=== PATIENT | female | born 1940 | race Caucasian/White ===

== ENCOUNTER → 2016-11-05 | Outpatient (CLI) | payer OTHER ==
[~2016-11-05] MED LIST: ACET-749 PO; ALLO100T PO; AMIT50TA3 PO; AMLH550 PO; ATEN-175 PO; CLX20 PO; CYAN100020 PO; DTR5 PO; ERGO500037 PO; FLNIN NAE; GUAISYP4 PO; IPRA1AER2 INH; LCTX PO; MAGN400T6 PO; ONDA4TAB46 PO; POTA10CA28 PO
--- NOTE | 2016-11-05 11:43 | DIAGNOSTIC IMAGING REPORT ---
KUB CLINICAL HISTORY: Nephrolithiasis. Cyst of kidney. COMPARISON STUDY: CT of the abdomen and pelvis January 13, 2016. FINDINGS: There is a large amount of stool within the colon and rectum. This makes evaluation for urinary calculi difficult. Pelvic calcifications were shown to represent phleboliths on prior CT. There is an equivocal 4 mm right renal calculus. No calculus was shown on CT of January 13, 2016 within the right kidney. IMPRESSION: No convincing urinary calculi identified although sensitivity is diminished by large amount of stool within the colon. Equivocal 4 mm right renal calculus. Electronically signed by: Iglesia Domingo M.D. 11/05/2016 11:41 AM Dictated Date/Time: 11/05/2016 11:39 AM
== END | disposition home or self-care (01) ==
LOC: C.RAD1850 10:49
PROVIDERS: ATTEND Urology
DX: N28.1 Cyst of kidney, acquired (principal); N20.0 Calculus of kidney; E55.9 Vitamin D deficiency, unspecified; I12.9 Hypertensive chronic kidney disease with stage 1 through stage 4 chronic kidney disease, or unspecified chronic kidney disease; N18.3 Chronic kidney disease, stage 3 (moderate); N25.81 Secondary hyperparathyroidism of renal origin; M10.9 Gout, unspecified; E53.8 Deficiency of other specified B group vitamins

== ENCOUNTER → 2016-12-03 | Outpatient (CLI) | payer OTHER | END | disposition home or self-care (01) | LOC: C.LABSPEC 16:56 | PROVIDERS: ATTEND Urology | DX: N39.0 Urinary tract infection, site not specified (principal) ==

== ENCOUNTER → 2017-01-26 | Outpatient (CLI) | payer OTHER ==
--- NOTE | 2017-01-26 16:24 | MAMMOGRAPHY REPORT ---
BILATERAL DIGITAL SCREENING MAMMOGRAM WITH CAD: 01/26/2017 CLINICAL HISTORY: Routine screening. Patient has no complaints. TECHNIQUE: Bilateral CC, MLO and repeat right CC views were obtained. Current study was also evalua charles with a Computer Aided Detection (CAD) system. COMPARISON: Comparison is made to exams dated: 01/23/2016 mammogram, 01/09/2015 mammogram, 01/06/2014 mammogram, 01/03/2013 mammogram, 12/29/2011 mammogram, and 12/19/2009 mammogram - [facility]. BREAST COMPOSITION: There are scattered areas of fibroglandular density in both breasts. FINDINGS: There are diffuse bilateral punctate microcalcifications. Mild vascular calcifications in the breasts. No suspicious mass, architectural distortion or cluster of suspicious microcalcificat ions is seen. IMPRESSION: ACR BI-RADS CATEGORY 1: NEGATIVE There is no mammographic evidence of malignancy. A 1 year screening mammogram is recommended. The p atient will receive written notification of the results. Approximately 10% of breast cancers are not detected with mammography. A negative mammographic repor t should not delay biopsy if a clinically suggestive mass is present. Amalia Zavala M.D. ay/:01/26/2017 15:19:59 Manager Purchasing: Brianne COWAN(R)(M), [facility] letter sent: Normal 1/2 BI-RADS Code: ACR BI-RADS Category 1: Negative
== END | disposition home or self-care (01) ==
LOC: C.MAMM 10:48
PROVIDERS: ATTEND Obstetrics & Gynecology
DX: Z12.31 Encounter for screening mammogram for malignant neoplasm of breast (principal)

== ENCOUNTER → 2017-04-20 | Outpatient (CLI) | payer OTHER ==
[2017-04-20 12:13] LABS: URINE APPEARANCE CLOUDY (CLEAR); URINE BILIRUBIN NEG (NEG); URINE COLOR YELLOW; URINE NITRITE POS (NEG); URINE PH 5.5 (4.5-7.5); UROBILINOGEN NEG (NEG); ZZUR CULT IF INDIC CLEAN CATCH YES
[2017-04-20 12:14] LABS: MANUAL MICROSCOPIC REQUIRED? NO; REVIEW REQ? NO
== END ==
LOC: C.LAB1850 10:18
PROVIDERS: ATTEND Internal Medicine
DX: N39.0 Urinary tract infection, site not specified (principal)

== ENCOUNTER → 2017-05-21 | Outpatient (CLI) | payer OTHER ==
[2017-05-21 12:14] LABS: HEMATOCRIT 42.8 % (37-47); MEAN CELL VOLUME 87.2 fL (80-100); MEAN CORPUSCULAR HEMOGLOBIN 27.1 pg (25-34); MEAN CORPUSCULAR HGB CONC 31.1 g/dl (32-36); MEAN PLATELET VOLUME 10.1 fL (7.4-10.4); PLATELET COUNT 286 K/uL (130-400); RED BLOOD COUNT 4.91 M/uL (4.2-5.4); WHITE BLOOD COUNT 5.42 K/uL (4.8-10.8)
[2017-05-21 12:49] LABS: BLOOD UREA NITROGEN 16 mg/dl (7-18); BUN/CREATININE RATIO 9.9 (10-20); CALCIUM 9.1 mg/dl (8.5-10.1); CARBON DIOXIDE 28 mmol/L (21-32); CHLORIDE 103 mmol/L (98-107); GLUCOSE 86 mg/dl (70-99); POTASSIUM 3.6 mmol/L (3.5-5.1); SODIUM 139 mmol/L (136-145)
[2017-05-21 12:50] LABS: PHOSPHORUS 2.8 mg/dl (2.5-4.9)
[2017-05-21 14:58] LABS: URINE APPEARANCE CLEAR (CLEAR); URINE BILIRUBIN NEG (NEG); URINE COLOR YELLOW; URINE NITRITE NEG (NEG); URINE PH 5.5 (4.5-7.5); URINE SPECIFIC GRAVITY 1.012 (1.000-1.030); UROBILINOGEN NEG (NEG)
[2017-05-21 15:00] LABS: MANUAL MICROSCOPIC REQUIRED? NO; REVIEW REQ? NO
[2017-05-21 15:16] LABS: URINE PROTIEN/CREAT RATIO 0.1 (0-0.2); URINE TOTAL PROTEIN 7.9 mg/dl (0-11.9)
== END | disposition home or self-care (01) ==
LOC: C.LAB1850 11:21
PROVIDERS: ATTEND Internal Medicine Nephrology
DX: I12.9 Hypertensive chronic kidney disease with stage 1 through stage 4 chronic kidney disease, or unspecified chronic kidney disease (principal); N20.0 Calculus of kidney; N18.3 Chronic kidney disease, stage 3 (moderate); N25.81 Secondary hyperparathyroidism of renal origin; E55.9 Vitamin D deficiency, unspecified

== ENCOUNTER → 2017-09-07 | Outpatient (CLI) | payer OTHER ==
--- NOTE | 2017-09-07 14:02 | ECHOCARDIOGRAM REPORT ---
*NOTICE TO RECEIVING [employer] AGENCY This information is strictly Confidential and protected under [place] law. [place] law prohibits you from making any further disclosure of this information unless further disclosure is expressly permitted by the written consent of the person to whom it pertains or is authorized by law. A general authorization for the release of medical or other information is not sufficient for this purpose. Hospital accepts no responsibility if the information is made available to any other person, INCLUDING THE PATIENT. Interpretation Summary * Name: PEPE ARGUETA Study Date: 09/07/2017 12:32 PM * Patient Location: [facility] HR: 80 * : 1940 (M/d/yyyy) Gender: Female Height: 58 in * Age: 77 yrs Ethnicity: [place] Weight: 150 lb * Ordering Physician: REJI Loredo. * Referring Physician: REJI Loredo. * Performed By: Yuki Quiñonez RCS * * Reason For Study: PALPITATIONS * BSA: 1.6 m2 * -- Conclusions -- * Left ventricular systolic function is normal. * Grade I diastolic dysfunction, (abnormal relaxation pattern). * There is mild mitral regurgitation. Procedure Details * A complete two-dimensional transthoracic echocardiogram was performed (2D, M-mode, Doppler and color flow Doppler). Left Ventricle * The left ventricle is normal in size. * There is normal left ventricular wall thickness. * Left ventricular systolic function is normal. * Ejection Fraction = 55-60%. * Grade I diastolic dysfunction, (abnormal relaxation pattern). * The left ventricular wall motion is normal. Right Ventricle * The right ventricle is normal in size and function. Atria * The left atrial size is normal. * Right atrial size is normal. Mitral Valve * The mitral valve anatomy is normal. * There is mild mitral regurgitation. Tricuspid Valve * The tricuspid valve is not well visualized, but is grossly normal. * There is trace tricuspid regurgitation. Aortic Valve * The aortic valve is normal in structure and function. * The aortic valve is trileaflet. * No hemodynamically significant valvular aortic stenosis. * There is no significant aortic regurgitation. Great Vessels * The aortic root is normal size. Pericardium/Pleural * There is no pericardial effusion. MMode 2D Measurements and Calculations IVSd 0.89 cm IVSs 1.0 cm LVIDd 4.3 cm LVIDs 3.0 cm LVPWd 1.2 cm LVPWs 1.3 cm IVS/LVPW 0.75 FS 28.7 % EDV(Teich) 81.7 ml ESV(Teich) 36.3 ml EF(Teich) 55.6 % EDV(cubed) 77.9 ml ESV(cubed) 28.2 ml EF(cubed) 63.8 % % IVS thick 17.5 % % LVPW thick 10.7 % LV mass(C)d 149.3 grams LV mass(C)dI 92.6 grams/m\S\2 LV mass(C)s 109.0 grams LV mass(C)sI 67.7 grams/m\S\2 SV(Teich) 45.4 ml SI(Teich) 28.2 ml/m\S\2 SV(cubed) 49.7 ml SI(cubed) 30.8 ml/m\S\2 Ao root diam 3.1 cm Ao root area 7.3 cm\S\2 LA dimension 3.7 cm LA/Ao 1.2 LVOT diam 2.0 cm LVOT area 3.1 cm\S\2 LVAd ap4 23.4 cm\S\2 LVLd ap4 5.9 cm EDV(MOD-sp4) 73.4 ml EDV(sp4-el) 79.1 ml LVAs ap4 14.6 cm\S\2 LVLs ap4 4.6 cm ESV(MOD-sp4) 37.5 ml ESV(sp4-el) 39.6 ml EF(MOD-sp4) 48.9 % EF(sp4-el) 50.0 % LVAd ap2 19.7 cm\S\2 LVLd ap2 5.4 cm EDV(MOD-sp2) 58.3 ml EDV(sp2-el) 60.7 ml LVAs ap2 13.2 cm\S\2 LVLs ap2 4.7 cm ESV(MOD-sp2) 31.1 ml ESV(sp2-el) 31.0 ml EF(MOD-sp2) 46.7 % EF(sp2-el) 48.9 % LVLd %diff -8.10 % EDV(MOD-bp) 68.6 ml LVLs %diff 4.1 % ESV(MOD-bp) 33.0 ml EF(MOD-bp) 51.9 % SV(MOD-sp4) 35.9 ml SI(MOD-sp4) 22.3 ml/m\S\2 SV(MOD-sp2) 27.2 ml SI(MOD-sp2) 16.9 ml/m\S\2 SV(MOD-bp) 35.6 ml SI(MOD-bp) 22.1 ml/m\S\2 SV(sp4-el) 39.6 ml SI(sp4-el) 24.6 ml/m\S\2 SV(sp2-el) 29.7 ml SI(sp2-el) 18.4 ml/m\S\2
== END | disposition home or self-care (01) ==
LOC: C.CPL 12:19
PROVIDERS: ATTEND Internal Medicine
DX: R25.1 Tremor, unspecified (principal); R00.2 Palpitations; R94.31 Abnormal electrocardiogram [ECG] [EKG]

== ENCOUNTER → 2017-11-25 | Outpatient (CLI) | payer OTHER | END | disposition home or self-care (01) | LOC: C.LABSPEC 07:45 | PROVIDERS: ATTEND Internal Medicine Nephrology | DX: N18.3 Chronic kidney disease, stage 3 (moderate) (principal); I12.9 Hypertensive chronic kidney disease with stage 1 through stage 4 chronic kidney disease, or unspecified chronic kidney disease; N28.1 Cyst of kidney, acquired ==

== ENCOUNTER → 2018-01-28 | Outpatient (CLI) | payer OTHER ==
--- NOTE | 2018-01-28 14:55 | MAMMOGRAPHY REPORT ---
BILATERAL DIGITAL SCREENING MAMMOGRAM TOMOSYNTHESIS WITH CAD: 01/28/2018 CLINICAL HISTORY: Routine screening. Patient has no complaints. TECHNIQUE: Breast tomosynthesis in addition to standard 2D mammography was performed. Current study was also evaluated with a Computer Aided Detection (CAD) system. COMPARISON: Comparison is made to exams dated: 01/26/2017 mammogram, 01/23/2016 mammogram, 01/09/2015 m ammogram, 01/06/2014 mammogram, 01/03/2013 mammogram, and 12/29/2011 mammogram - [facility] enter. BREAST COMPOSITION: There are scattered areas of fibroglandular density in both breasts. FINDINGS: No suspicious masses, calcifications, or areas of architectural distortion are noted in ei ther breast. There has been no significant interval change compared to prior exams. Scattered bilater al benign-appearing calcifications are not significantly changed. IMPRESSION: ACR BI-RADS CATEGORY 2: BENIGN There is no mammographic evidence of malignancy. A 1 year screening mammogram is recommended. The pa tient will receive written notification of the results. Approximately 10% of breast cancers are not detected with mammography. A negative mammographic report should not delay biopsy if a clinically suggestive mass is present. Brooke Walker M.D. /:01/28/2018 09:46:09 Naval Architect Specialist: Judy Benjamin M, [facility] letter sent: Normal 1/2 BI-RADS Code: ACR BI-RADS Category 2: Benign
== END | disposition home or self-care (01) ==
LOC: C.MAMM 08:04
PROVIDERS: ATTEND Obstetrics & Gynecology
DX: Z12.31 Encounter for screening mammogram for malignant neoplasm of breast (principal)

== ENCOUNTER → 2018-02-26 | Outpatient (CLI) | payer OTHER ==
[~2018-02-26] MED LIST changes: -ACET-749 PO; +ACET300T3 PO
--- NOTE | 2018-02-26 08:09 | DIAGNOSTIC IMAGING REPORT ---
(RENAL)RETROPERITON COMP HISTORY: 77 years-old Female N25.81 Secondary [id number] COMPARISON: CT abdomen and pelvis 01/13/2016 TECHNIQUE: Multiple real-time sonographic images of the kidneys and bladder were obtained assessing grayscale appearance and color flow FINDINGS: The right kidney measures 8.0 x 4.1 x 3.9 cm and is mildly atrophic with moderate generalized cortical thinning. No right-sided renal calculi, hydronephrosis or focal mass lesions. Mildly increased parenchymal echogenicity. The left kidney measures 7.5 x 4.1 x 3.8 cm. 2.4 x 3.1 x 2.8 cm cyst of the superior pole left kidney redemonstrated. No left-sided renal calculi, hydronephrosis or suspicious mass lesions. Mild left-sided renal atrophy with moderate diffuse cortical thinning also noted. Mildly increased echogenicity of the kidney. Urinary bladder is unremarkable bilateral ureteral jets documented. IMPRESSION: 1. Mild atrophy of the bilateral kidneys with cortical thinning and slightly increased echogenicity suggests sequela of chronic medical renal disease. 2. No renal calculi or hydronephrosis. The above report was generated using voice recognition software. It may contain grammatical, syntax or spelling errors. Electronically signed by: Alek Lucas M.D. 02/26/2018 8:08 AM Dictated Date/Time: 02/26/2018 8:05 AM
== END | disposition home or self-care (01) ==
LOC: C.ULTR 07:31
PROVIDERS: ATTEND Internal Medicine Nephrology
DX: N25.81 Secondary hyperparathyroidism of renal origin (principal); N26.9 Renal sclerosis, unspecified